=== PATIENT | female | born 1970 | race African-American/Black ===

== ENCOUNTER 2019-03-15 18:19 | Emergency (ER) | payer MEDICAID ==
[~2019-03-15] VITALS: Ht 157.5 cm; Wt 67.3 kg
[~2019-03-15 18:19] MED LIST: ACET-141 PO; IBUP-1561 PO; METH750T93 PO
[2019-03-15 18:32] VITALS: BP 118/70; PULSE 70; RESP 16; Ht 157.5 cm; Wt 67.3 kg
[2019-03-15] MEDS ORDERED: IBUPROFEN 200 MG TAB PO ONE (20:30)
[2019-03-15] MEDS ORDERED: ACETAMINOPHEN 325 MG TAB PO ONE (20:30)
== END 2019-03-15 21:16 | disposition home or self-care (01) ==
LOC: FTE 18:19
DX: R51 Headache (principal); M54.2 Cervicalgia
CPT/HCPCS: 70450; 72125; 81025; Z7502; Z7610